=== PATIENT | female | born 1960 | race Caucasian/White ===

== ENCOUNTER 2021-05-11 06:36 | Observation (INO) ==
[~2021-05-11 06:36] MED LIST: Bacitracin 50,000 UNIT, Polymyxin B Sulfate 500,000 UNIT, Sodium Chloride IRRigation 1,... IR ONE
[2021-05-11] MEDS: Ringers Solution, Lactated 1,000 ML IVC SCH ×3 (07:40→15:37)
[2021-05-11] MEDS ORDERED: *HR* Remifentanil 1 MG VIAL IVP ONE ×2 (07:44→12:06)
[2021-05-11] MEDS ORDERED: Lidocaine -MPF 4% 5 ML AMPUL ONE (07:44)
[2021-05-11] MEDS ORDERED: *HR* Rocuronium Bromide 50 MG/5 ML VIAL ONE (07:44)
[2021-05-11] MEDS ORDERED: *HR* Succinylcholine 200 MG/10 ML VIAL IVP ONE (07:44)
[2021-05-11] MEDS ORDERED: Lidocaine -MPF 2% 2 ML VIAL ONE (07:44)
[2021-05-11] MEDS ORDERED: Ondansetron 4 MG/2 ML VIAL ONE (07:44)
[2021-05-11] MEDS ORDERED: *HR* Propofol 200 MG/20 ML VIAL IVP ONE (07:45)
[2021-05-11] MEDS ORDERED: *HR* Midazolam HCl 2 MG/2 ML VIAL ONE (07:45)
[2021-05-11] MEDS ORDERED: *HR* FentaNYL (PF) 100 MCG/2 ML VIAL ONE (07:45)
[2021-05-11] MEDS ORDERED: *HR* Phenylephrine 10 MG/ML VIAL ONE (07:49)
[2021-05-11] MEDS ORDERED: Acetaminophen IV 1,000 MG/100 ML BAG IVPB PRN (08:03)
[2021-05-11] MEDS ORDERED: *HR* OxyCODONE Immed Rel 5 MG TABLET PO PRN (08:03)
[2021-05-11] MEDS ORDERED: *HR* HYDROmorphone PF 0.5 MG/0.5 ML SYRINGE IVP PRN (08:03)
[2021-05-11] MEDS ORDERED: Ondansetron 4 MG/2 ML VIAL IVP PRN ×2 (08:03→14:44)
[2021-05-11] MEDS ORDERED: Ringers Solution, Lactated 1,000 ML IVC SCH (08:15)
[2021-05-11] MEDS ORDERED: Lacri-Lube 3.5 GM TUBE ONE (08:24)
[2021-05-11] MEDS: CeFAZolin Syr 2,000MG/20 ML 2,000 MG/20 ML SYRINGE IVPB ONE ×2 (08:50→12:40)
[2021-05-11] MEDS ORDERED: EPHEDrine 50 MG/ML VIAL ONE (09:10)
[2021-05-11] MEDS ORDERED: Sugammadex Sodium 200 MG/2 ML VIAL IV ONE (10:01)
[2021-05-11] MEDS ORDERED: Albumin Human 5% 12.5 GM/250 ML IV.SOLN ONE (12:24)
[2021-05-11] MEDS ORDERED: *HR* HYDROMORPHONE 2 MG/ML VIAL ONE (12:51)
[2021-05-11] MEDS ORDERED: Ketorolac 15 MG/ML VIAL IVP ONE (13:49)
[2021-05-11] MEDS ORDERED: Gabapentin 300 MG CAPSULE PO ONE ×2 (13:49→14:10)
[2021-05-11] MEDS ORDERED: *HR* Meperidine 25 MG/ML SYRINGE IVP ONE (13:51)
[2021-05-11] MEDS ORDERED: Gabapentin 300 MG CAPSULE ONE (13:53)
[2021-05-11] MEDS ORDERED: Naloxone 0.4 MG/ML INJ IVP PRN (14:44)
[2021-05-11] MEDS: *HR* OxyCODONE Immed Rel 5 MG TABLET PO PRN ×2 (15:31→23:26)
[2021-05-11] MEDS: CeFAZolin 2 GM/120 ML BAG IVPB SCH ×2 (16:08→23:27)
[2021-05-11] MEDS: Metoprolol XL (24 HR) Succ 25 MG TAB.ER.24H PO SCH (21:37)
[2021-05-11] MEDS: *HR* HYDROcodone/Acet 5/325 mg TABLET PO PRN (21:37)
[2021-05-12] MEDS: *HR* OxyCODONE Immed Rel 5 MG TABLET PO PRN ×2 (04:51→09:11)
[2021-05-12] MEDS: Aspirin Enteric Coated 81 MG Tablet PO SCH (09:10)
[2021-05-12] MEDS: Metoprolol XL (24 HR) Succ 25 MG TAB.ER.24H PO SCH ×2 (09:11→20:01)
[2021-05-12] MEDS: Valsartan 80 MG TABLET PO SCH (09:11)
[2021-05-12] MEDS ORDERED: Nitroglycerin 0.4 MG TAB.SUBL SL PRN (09:53)
[2021-05-12] MEDS ORDERED: Fluticasone Propionate Nasal 50 MCG/SPRAY BOTTLE NS PRN (09:53)
[2021-05-12] MEDS ORDERED: Tiotropium 10 INH DOSE IH ONE (10:21)
[2021-05-12] MEDS: Tiotropium 10 INH DOSE IH SCH ×2 (10:36)
[2021-05-12] MEDS: Gabapentin 300 MG CAPSULE PO SCH ×3 (11:49→20:01)
[2021-05-12 12:06] LABS: Basophils % 0.1 %; Hematocrit 29.9 % (35.3-44.9); Hemoglobin 9.3 g/dL (11.5-15.4); Immature Granulocytes % 0.3 % (0-4); Lymphocytes # 1.1 K/mcL (0.6-4.6); Lymphocytes % 12.2 %; Mean Corpuscular HGB Conc 31.1 g/dL (31.6-35.5); Mean Corpuscular Hemoglobin 26.8 pg (28.0-33.3); Mean Corpuscular Volume 86.2 fL (83.0-100.0); Mean Platelet Volume 10.6 fL (9.4-12.4); Monocytes % 11.9 %; Neutrophils # 6.5 K/mcL (1.6-8.9); Platelet Count 148 K/mcL (140-400); Red Blood Count 3.47 M/mcL (3.82-4.97); Red Cell Distribution Width 13.9 % (11.5-14.5); Segmented Neutrophils % 75.5 %; White Blood Count 8.6 K/mcL (4.3-11.1)
[2021-05-12] MEDS: Sucralfate 1 GM TABLET PO SCH ×3 (12:19→20:00)
[2021-05-12 12:29] LABS: BUN/Creatinine Ratio 18 (6-26); Blood Urea Nitrogen 14 mg/dL (8-23); Calcium 8.3 mg/dL (8.6-10.3); Carbon Dioxide 28 mEq/L (23-29); Chloride 107 mEq/L (98-107); Glucose 103 mg/dL (70-105); Osmolality,Calculated 291 (280-300); Sodium 140 mEq/L (136-145); eGFR For African Americans > 60 (> 60); eGFR For Non-African Americans > 60 (> 60)
[2021-05-12] MEDS ORDERED: tiZANidine 4 MG TABLET PO PRN (13:17)
[2021-05-12] MEDS: *HR* HYDROcodone/Acet 5/325 mg TABLET PO PRN (13:43)
[2021-05-12] MEDS: Ringers Solution, Lactated 1,000 ML IVC SCH ×2 (14:02→21:34)
[2021-05-12] MEDS: Acetaminophen 325 MG TABLET PO PRN (18:21)
[2021-05-12] MEDS: Ketorolac 30 MG/ML VIAL IVP PRN (23:05)
[2021-05-13] MEDS: Acetaminophen 325 MG TABLET PO PRN (00:21)
[2021-05-13] MEDS: Ringers Solution, Lactated 1,000 ML IVC SCH ×2 (03:20→16:11)
[2021-05-13 04:34] LABS: Hematocrit 24.2 % (35.3-44.9); Hemoglobin 7.8 g/dL (11.5-15.4); Mean Corpuscular HGB Conc 32.2 g/dL (31.6-35.5); Mean Corpuscular Hemoglobin 27.9 pg (28.0-33.3); Mean Corpuscular Volume 86.4 fL (83.0-100.0); Mean Platelet Volume 10.4 fL (9.4-12.4); Platelet Count 109 K/mcL (140-400); White Blood Count 5.6 K/mcL (4.3-11.1)
[2021-05-13] MEDS ORDERED: diazePAM 5 MG TABLET PO PRN (05:06)
[2021-05-13] MEDS ORDERED: 0.9 % Sodium Chloride 250 ML ONE ×2 (06:21→11:24)
[2021-05-13] MEDS: Tiotropium 10 INH DOSE IH SCH (07:38)
[2021-05-13] MEDS: Gabapentin 300 MG CAPSULE PO SCH ×3 (09:16→20:01)
[2021-05-13] MEDS: Valsartan 80 MG TABLET PO SCH (09:16)
[2021-05-13] MEDS: Sucralfate 1 GM TABLET PO SCH ×4 (09:16→20:01)
[2021-05-13] MEDS: Cholecalciferol (D-3) 1,000 UNIT (25MCG) TABLET PO SCH (09:16)
[2021-05-13] MEDS: Aspirin Enteric Coated 81 MG Tablet PO SCH (09:17)
[2021-05-13] MEDS: Metoprolol XL (24 HR) Succ 25 MG TAB.ER.24H PO SCH ×2 (09:17→20:01)
[2021-05-13] MEDS: Ketorolac 30 MG/ML VIAL IVP PRN (12:50)
[2021-05-13 17:22] LABS: Hematocrit 30.4 % (35.3-44.9)
[2021-05-13 17:45] LABS: Hemoglobin 9.6 g/dL (11.5-15.4)
[2021-05-13] MEDS: *HR* HYDROcodone/Acet 5/325 mg TABLET PO PRN (20:01)
[2021-05-14] MEDS: Ringers Solution, Lactated 1,000 ML IVC SCH ×3 (00:28→13:47)
[2021-05-14] MEDS: *HR* HYDROcodone/Acet 5/325 mg TABLET PO PRN ×2 (03:40→13:47)
[2021-05-14] MEDS: Acetaminophen 325 MG TABLET PO PRN ×2 (06:40→13:47)
[2021-05-14] MEDS: Valsartan 80 MG TABLET PO SCH (09:12)
[2021-05-14] MEDS: Sucralfate 1 GM TABLET PO SCH ×2 (09:12→13:47)
[2021-05-14] MEDS: Aspirin Enteric Coated 81 MG Tablet PO SCH (09:12)
[2021-05-14] MEDS: Metoprolol XL (24 HR) Succ 25 MG TAB.ER.24H PO SCH (09:12)
[2021-05-14] MEDS: Ketorolac 30 MG/ML VIAL IVP PRN (09:12)
[2021-05-14] MEDS: Gabapentin 300 MG CAPSULE PO SCH (09:12)
[2021-05-14] MEDS: Cholecalciferol (D-3) 1,000 UNIT (25MCG) TABLET PO SCH (09:12)
[2021-05-14] MEDS: Tiotropium 10 INH DOSE IH SCH (09:47)
[2021-05-14] MEDS ORDERED: polyethylene glycoL 3350 17 GM POWD.PACK PO SCH (10:00)
[2021-05-14 10:18] VITALS: BP 117/67
[2021-05-14 10:33] LABS: Hematocrit 30.9 % (35.3-44.9); Hemoglobin 10.4 g/dL (11.5-15.4)
== END 2021-05-14 14:01 ==
LOC: 3NENU 06:36 → SAMDAY 06:36 → 3NENU 14:41
PROVIDERS: ADMIT Orthopaedic Surgery Orthopaedic Surgery of the Spine; ATTEND Orthopaedic Surgery Orthopaedic Surgery of the Spine